=== PATIENT | male | born 1970 | race Caucasian/White ===

== ENCOUNTER 2023-03-27 12:28 | Emergency (ER) | payer OTHER, SELFPAY ==
[2023-03-27] VITALS (10 sets, daily range): BP systolic 137–175; BP diastolic 67–120; PULSE 94; RESP 20; TEMP 37.1; O2SAT 97–99; BMI 23.0
--- NOTE | 2023-03-27 12:43 | PC.NURSE ---
AMPUTATION OF THE TIP OF LEFT MIDDLE FINGER UST BELOW NAIL BED. BLEEDING CONTROLLED AND FINGER COVERED WITH SALINE SOAKED GAUZE
--- NOTE | 2023-03-27 12:47 | ED.UPPEXIN1 ---
HPI - Extremity Injury (Upper) General Chief Complaint: Extremity Injury, Upper Stated Complaint: UPPER EXTREMITY INJURY/ [facility] Time Seen by Provider: 03/27/23 12:38 Source: patient Mode of arrival: walk-in History of Present Illness HPI narrative: Patient accidentally cut off half of the distal phalanx of the left middle finger at work just prior to arrival. he said that he was placing a metal ring onto a moon and lost control of the ring, causing it fall and as it did so the left hand came down and was cut on the sharp cutting blade nearby. He brought in the distal portion of the left middle finger in a cup. Last tetanus was about 4 years ago. Related Data Previous Rx's Medication Instructions Recorded cephalexin 500 mg capsule 500 mg PO QID 7 days #28 caps 03/27/23 oxycodone-acetaminophen 5 mg-325 1 tab PO Q6H PRN pain 4 days #14 03/27/23 mg tablet (Percocet) tabs Allergies Allergy/AdvReac Type Severity Reaction Status Date / Time No Known Drug Allergies Allergy Verified 03/27/23 12:34 Exam Narrative Exam Narrative: Nurses note and vital signs reviewed and patient is not hypoxic. afebrile General: The patient appears well and in no apparent distress. Patient is resting comfortably on cart. GCS = 15. Skin: Warm, dry, no pallor noted. Head: Normocephalic, atraumatic ENT: no facial injury Cardiovascular: Regular Rate and Rhythm Respiratory: Patient is in no distress, no accessory muscle use, lungs are clear to auscultation, no wheezing, rales or rhonchi Musculoskeletal: amputation of distal portion of the distal phalanx of the left 3rd (ring) finger - through the bone, which is now exposed. Remainder of the hand unaffected. Neurological: A&O x4, normal equal heavy repairer strength, normal coordination, normal motor, normal sensory. Psychiatric: Cooperative Constitutional Vital Signs, click to edit/add: Last Vital Signs Temp 98.8 F 03/27/23 12:30 Pulse 94 H 03/27/23 12:30 Resp 20 03/27/23 12:30 BP 152/67 H 03/27/23 14:01 Pulse Ox 98 03/27/23 13:38 O2 Del Method Room Air 03/27/23 12:30 Course Vital Signs Vital signs: Vital Signs Temperature 98.8 F 03/27/23 12:30 Pulse Rate 94 H 03/27/23 12:30 Respiratory Rate 20 03/27/23 12:30 Blood Pressure 175/116 H 03/27/23 12:30 Pulse Oximetry 98 03/27/23 12:30 Oxygen Delivery Method Room Air 03/27/23 12:30 Temperature 98.8 F 03/27/23 12:30 Pulse Rate 94 H 03/27/23 12:30 Respiratory Rate 20 03/27/23 12:30 Blood Pressure 152/67 H 03/27/23 14:01 Pulse Oximetry 98 03/27/23 13:38 Oxygen Delivery Method Room Air 03/27/23 12:30 MDM - Extremity Injury (Upper) MDM Narrative Medical decision making narrative: Patient has incomplete amputation through the left 3rd distal phalanx. His tetanus is up to date. Two IVs established and xrays of the left hand obtained. He was given IV Ancef along with IV Zofran and IV Dilaudid. Dr Fajardo not available today. Call placed to [facility] at the patient's request. I spoke with Dr Clemens as the images were being transmitted to [facility]. She said she would review the images and get back to me. After reviewing the images she told me that the tip is not salvageable. She recommended the following, which we did: soak the hand in cleansing solution 10-15 minutes, the dry the hand, apply ointment to the distal phalanx tip and cover with xeroform, pad with gauze and soft padding and then cover with a bulky dressing to protect the finger. Patient will see her in the office tomorrow - patient will call to schedule time. Patient discharged home with prescriptions for Keflex and Percocet, instructed to be NPO after midnight and follow up with Dr Clemens in the office. he and th express verbal understanding of the plan. Imaging Data xr hand: Radiologist's impression: ITS Impressions Hand X-Ray 03/27/23 12:53 IMPRESSION: Amputation tip of the third finger along the proximal diaphysis of the third distal phalanx Electronically authenticated by: DUKE DEL TORO Date: 03/27/2023 13:28 Discharge Plan Discharge Chief Complaint: Extremity Injury, Upper Clinical Impression: Traumatic amputation of fingertip, Open fracture of distal phalanx of digit of left hand Patient Disposition: Home, Self-Care Time of Disposition Decision: 13:12 Prescriptions / Home Meds: New cephalexin 500 mg capsule 500 mg PO QID 7 Days Qty: 28 0RF oxycodone-acetaminophen [Percocet] 5-325 mg tablet 1 tab PO Q6H PRN (Reason: pain) 4 Days Qty: 14 0RF Rx Instructions: ICD 10 = S68 Instructions: Finger Amputation (ED) Stand Alone Forms: Portal Instructions Referrals: PRIYA CLEMENS [Physician] - 03/28/23 Physician,Non-Staff, MD [Primary Care Provider] - 1 week
--- NOTE | 2023-03-27 12:53 | XR_ITS ---
The [address] [address] Patient Name: TIERNEY VILLAR MRN: [id number] date: 1970 Sex: M Assigned Patient Location: ER Current Patient Location: ED.MAIN Accession/Order Number: [id number] Exam Date: 03/27/2023 13:10 Report Date: 03/27/2023 13:28 At the request of: CHRIS GILLESPIE Procedure: XR hand LT min 3V PROCEDURE: XR hand LT min 3V COMPARISON: None. HISTORY: partial amputation left 3rd distal phalanx FINDINGS: BONES:Acute amputation tip of the third finger along the proximal diaphysis of the third distal phalanx. No dislocation. SOFT TISSUES:Soft tissue swelling of the third finger EFFUSION:None visible. OTHER: Negative. XR/XR hand LT min 3V IMPRESSION: Amputation tip of the third finger along the proximal diaphysis of the third distal phalanx Electronically authenticated by: DUKE DEL TORO Date: 03/27/2023 13:28
[2023-03-27] MEDS: HYDROMORPHONE HCL 1 MG/ML CARTRIDGE IV (12:54)
[2023-03-27] MEDS: ONDANSETRON PF 4 MG/2 ML VIAL IV (12:54)
[2023-03-27] MEDS: CEFAZOLIN SODIUM/DEXTROSE,ISO 1 GM/50 ML IV.SOLN IV (12:54)
== END 2023-03-27 14:41 | disposition home or self-care (01) ==
PROVIDERS: Emergency Provider Emergency Medicine
DX: S68.623A Partial traumatic transphalangeal amputation of left middle finger, initial encounter (principal); W26.8XXA Contact with other sharp object(s), not elsewhere classified, initial encounter
CPT/HCPCS: 73130; 96365; 96375; 99284; J0690; J1170; J2405

== ENCOUNTER 2023-10-27 15:30 | Emergency (ER) | payer OTHER, SELFPAY ==
[2023-10-27 15:37] VITALS: BP 179/100; PULSE 87; TEMP 36.7; O2SAT 98; BMI 23.7
--- NOTE | 2023-10-27 15:58 | ED.GENADUL1 ---
HPI HPI - General Adult General Chief complaint: Wound/Laceration Stated complaint: HEAD INJURY/[facility] Time Seen by Provider: 10/27/23 15:39 Source: patient Mode of arrival: walk-in Limitations: no limitations History of Present Illness HPI narrative: The patient is coming to the ER after he was at work and apparently was standing up when he hit his head with the lower end of the dryer, the patient denies any loss of consciousness this happened at work and he has just had a small abrasion to his scalp No intake of any anticoagulation and no other injuries Related Data Home Medications ?Medication ?Instructions ?Recorded ?Confirmed No Known Home Medications 10/27/23 10/27/23 Allergies Allergy/AdvReac Type Severity Reaction Status Date / Time No Known Drug Allergies Allergy Verified 03/27/23 12:34 Opioid HPI Opioid Management Most Recent Opioid Data: Last Pain Scale 4 10/27/23 15:45 Review of Systems ROS Status of ROS 10 or more systems reviewed and unremarkable except as noted in history and below Exam Narrative Exam Narrative: Nurses notes and vital signs reviewed and patient is not hypoxic. General: Well-appearing and in no apparent distress. Skin: Warm, dry, no pallor noted. No rash. Head: Normocephalic, there is a small abrasion like 2 mm wound to the upper scalp mostly the mid and superficial with no active bleed Neck: Supple, non-tender. Eye: Pupils are equal, round and EOMI. No scleral icterus. Ears, Nose, Mouth, and Throat: TM are clear, no nasal mucosal hypertrophy. Oral mucosa is moist, no posterior oropharynx erythema, uvula is mid-line Cardiovascular: Regular Rate and Rhythm without murmur, gallop or rub. Respiratory: No accessory muscle use or respiratory distress. Lungs are clear to auscultation, no wheezing, rales or rhonchi Chest Wall: no tenderness Back: No midline thoracic or lumbar vertebral tenderness. No CVA tenderness Musculoskeletal: normal ROM, no calf or popliteal tenderness, no lower extremity edema/swelling GI: Abdomen is soft, non-distended. Normal bowel sounds. No masses appreciated. No tenderness to palpation. No rebound, guarding, or rigidity noted. Neurological: A&O x4. No cranial nerve dysfunction observed. No truncal ataxia. Moves all extremities. Sensation intact. Psychiatric: Cooperative and interactive. Normal mood and affect. Constitutional Vital Signs, click to edit/add: Last Vital Signs Temp 98.1 F 10/27/23 15:37 Pulse 87 10/27/23 15:37 Resp 18 10/27/23 15:37 BP 179/100 H 10/27/23 15:37 Pulse Ox 98 10/27/23 15:37 O2 Del Method Room Air 10/27/23 15:37 Course Vital Signs Vital signs: Vital Signs Temperature 98.1 F 10/27/23 15:37 Pulse Rate 87 10/27/23 15:37 Respiratory Rate 18 10/27/23 15:37 Blood Pressure 179/100 H 10/27/23 15:37 Pulse Oximetry 98 10/27/23 15:37 Oxygen Delivery Method Room Air 10/27/23 15:37 Temperature 98.1 F 10/27/23 15:37 Pulse Rate 87 10/27/23 15:37 Respiratory Rate 18 10/27/23 15:37 Blood Pressure 179/100 H 10/27/23 15:37 Pulse Oximetry 98 10/27/23 15:37 Oxygen Delivery Method Room Air 10/27/23 15:37 Medical Decision Making [facility] Narrative Medical decision making narrative: Right now the patient have no alarming symptoms of his head injury there was no loss of consciousness and there is no intake of anticoagulation And the injury mechanism is minor right now the patient was treated in the ER with Dermabond instructed to keep the wound clean and dry and he was cleared to go back to work Patient to follow-up with occupational health as outpatient he is also to come back to the ER in case of any new symptoms or concerns Discharge Plan Discharge Stand Alone Forms: Work/School Release, Portal Instructions Chief Complaint: Wound/Laceration Clinical Impression: Head trauma Qualifiers: Encounter type: initial encounter Qualified Code(s): S09.90XA - Unspecified injury of head, initial encounter Abrasion of scalp Qualifiers: Encounter type: initial encounter Qualified Code(s): S00.01XA - Abrasion of scalp, initial encounter Patient Disposition: Home, Self-Care Time of Disposition Decision: 15:59 Condition: Good Prescriptions / Home Meds: No Action No Known Home Medications Print Language: Lao Instructions: Head Injury (DC), Abrasion (ED) [facility]errals: [facility] [Outside] - As soon as possible Physician,Non-Staff, MD [Primary Care Provider] - 1 week Discharge Date/Time: 10/27/23 16:14
== END 2023-10-27 16:14 | disposition home or self-care (01) ==
PROVIDERS: Emergency Provider Emergency Medicine
DX: S00.01XA Abrasion of scalp, initial encounter (principal); S09.90XA Unspecified injury of head, initial encounter; W22.8XXA Striking against or struck by other objects, initial encounter
CPT/HCPCS: 99281